=== PATIENT | female | born 1980 | race Caucasian/White ===

== ENCOUNTER 2016-10-02 09:56 | Emergency (ER) | payer OTHER ==
[~2016-10-02] VITALS: Ht 165.1 cm; Wt 97.6 kg
[2016-10-02 11:30] LABS: BLOOD UREA NITROGEN 4 mg/dL (7-18)
[2016-10-02 11:33] LABS: ASPARTATE AMINO TRANSFERASE 22 U/L (15-37)
[2016-10-02 12:04] VITALS: BP 106/76
== END 2016-10-02 12:08 | disposition home or self-care (01) ==
LOC: ED 10:48
DX: F10.20 Alcohol dependence, uncomplicated (principal); F41.9 Anxiety disorder, unspecified
CPT/HCPCS: 36415; 80053; 85025; 93005; 99285

== ENCOUNTER 2016-11-22 19:22 | Observation (INO) | payer MEDICAID, OTHER ==
[~2016-11-22] VITALS: Ht 165.1 cm; Wt 73.0 kg
[2016-11-22 19:55] LABS: BLOOD UREA NITROGEN 8 mg/dL (7-18)
[2016-11-22 19:57] LABS: ACETAMINOPHEN < 2 mcg/mL (10-30)
[2016-11-22 20:10] LABS: DAU SCREEN DISCLAIMER
[2016-11-23] MEDS ORDERED: DOCUSATE 100 MG CAPSULE PO PRN (05:00)
[2016-11-23] MEDS ORDERED: ONDANSETRON ODT 4 MG PO PRN (05:00)
[2016-11-23] MEDS ORDERED: POTASSIUM CHLORIDE 20 MEQ TAB.ER.PRT PO ONE (05:00)
[2016-11-23] MEDS ORDERED: ACETAMINOPHEN 325 MG TABLET PO PRN (05:00)
[2016-11-23 05:37] VITALS: BP 123/84
[2016-11-23 07:26] VITALS: BP 129/94
[2016-11-23] MEDS: RISPERIDONE 1 MG TABLET PO SCH ×2 (09:00→21:00)
[2016-11-23] MEDS ORDERED: ZIPRASIDONE 20MG CAPSULE PO PRN (18:00)
[2016-11-23 18:06] VITALS: BP 122/85
[2016-11-23] MEDS: NICOTINE 14MG/24 HR PATCH.TD24 TD SCH (18:28)
[2016-11-23 19:32] VITALS: BP 126/85
[2016-11-24] MEDS: ZIPRASIDONE 20MG CAPSULE PO PRN ×2 (01:45→12:22)
[2016-11-24 06:07] LABS: ASPARTATE AMINO TRANSFERASE 179 U/L (15-37); BLOOD UREA NITROGEN 7 mg/dL (7-18)
[2016-11-24 07:42] VITALS: BP 134/96
[2016-11-24] MEDS: RISPERIDONE 1 MG TABLET PO SCH ×2 (08:56→21:00)
[2016-11-24] MEDS: NICOTINE 14MG/24 HR PATCH.TD24 TD SCH (18:00)
[2016-11-24 19:36] VITALS: BP 125/75
[2016-11-25 08:23] VITALS: BP 120/90
[2016-11-25] MEDS: LORazepam 1MG TABLET PO PRN ×2 (08:23→17:23)
[2016-11-25] MEDS: BACLOFEN 10 MG TABLET PO SCH ×3 (08:33→21:00)
[2016-11-25] MEDS: RISPERIDONE 1 MG TABLET PO SCH ×2 (08:37→21:00)
[2016-11-25 17:24] VITALS: BP 122/90
[2016-11-25] MEDS: NICOTINE 14MG/24 HR PATCH.TD24 TD SCH (18:18)
[2016-11-25 20:11] VITALS: BP 131/85
[2016-11-26] MEDS: LORazepam 1MG TABLET PO PRN ×2 (08:14→17:33)
[2016-11-26] MEDS: BACLOFEN 10 MG TABLET PO SCH ×3 (08:14→20:45)
[2016-11-26] MEDS: RISPERIDONE 1 MG TABLET PO SCH ×6 (08:21→21:00)
[2016-11-26 08:25] VITALS: BP 133/94
[2016-11-26] MEDS: NICOTINE 14MG/24 HR PATCH.TD24 TD SCH (17:33)
[2016-11-26 19:41] VITALS: BP 133/88
[2016-11-27 07:51] VITALS: BP 139/92
[2016-11-27] MEDS: LORazepam 1MG TABLET PO PRN (08:06)
[2016-11-27] MEDS: BACLOFEN 10 MG TABLET PO SCH (08:06)
[2016-11-27] MEDS: RISPERIDONE 1 MG TABLET PO SCH (08:59)
== END 2016-11-27 14:45 ==
LOC: ED 20:05 → INTOOBSV 11-23 03:34 → EDIP 11-23 03:34 → 3E 11-23 05:35
PROVIDERS: ADMIT Internal Medicine; ATTEND Internal Medicine
DX: R45.851 Suicidal ideations (principal); F20.9 Schizophrenia, unspecified; F31.9 Bipolar disorder, unspecified; F41.9 Anxiety disorder, unspecified; E87.6 Hypokalemia; F22 Delusional disorders; F14.10 Cocaine abuse, uncomplicated; F10.239 Alcohol dependence with withdrawal, unspecified; Z91.14 Patient's other noncompliance with medication regimen
CPT/HCPCS: 36415; 80048; 80053; 80307; 80329; 82040; 84443; 84703; 85025; 99285; G0378; Q0177; G0480

== ENCOUNTER 2016-12-09 23:44 | Emergency (ER) | payer MEDICAID ==
[~2016-12-09] VITALS: Ht 165.1 cm; Wt 70.0 kg
[2016-12-10] MEDS ORDERED: LIDOCAINE 1%, 20ML ONE ×2 (00:18→12:38)
[2016-12-10] MEDS ORDERED: DIPH,PERTUSS(ACELL),TET VAC/PF 0.5 ML IM-VACC ONE ×2 (00:18→00:30)
[2016-12-10 00:20] LABS: DAU SCREEN DISCLAIMER
[2016-12-10] MEDS ORDERED: LIDOCAINE 1%, 20ML SQ ONE (00:30)
[2016-12-10 00:39] LABS: BLOOD UREA NITROGEN 3 mg/dL (7-18)
[2016-12-10 00:44] LABS: ASPARTATE AMINO TRANSFERASE 59 U/L (15-37)
[2016-12-10 00:45] LABS: ACETAMINOPHEN < 2 mcg/mL (10-30)
[2016-12-10] MEDS ORDERED: ZIPRASIDONE 20 MG INJ IM ONE ×2 (00:49→01:00)
[2016-12-10] MEDS ORDERED: BACITRACIN ZINC OINT 500U/GM, 0.9 GM ONE (01:31)
[2016-12-10] MEDS ORDERED: SODIUM CHLORIDE 0.9% 1,000ML IVBOLUS ONE (02:30)
[2016-12-10] MEDS ORDERED: SODIUM CHLORIDE FLUSH 10ML SYR IVF ONE (02:30)
[2016-12-10] MEDS ORDERED: POTASSIUM CHLORIDE 40 MEQ in SODIUM CHLORIDE 0.9% 500 ML IV ONE (02:30)
[2016-12-10] MEDS ORDERED: LORazepam 2 MG/ML, 1ML ONE (07:24)
[2016-12-10] MEDS ORDERED: POTASSIUM CHLORIDE 20 MEQ TAB.ER.PRT ONE (07:24)
[2016-12-10] MEDS ORDERED: LORazepam 2 MG/ML, 1ML IVPush ONE (07:30)
[2016-12-10] MEDS ORDERED: POTASSIUM CHLORIDE 20 MEQ TAB.ER.PRT PO ONE (07:30)
[2016-12-10 07:44] VITALS: BP 125/87
[2016-12-10] MEDS ORDERED: DOCUSATE 100 MG CAPSULE PO PRN (11:00)
[2016-12-10] MEDS ORDERED: ONDANSETRON ODT 4 MG PO PRN (11:00)
[2016-12-10] MEDS ORDERED: POLYETHYLENE GLYCOL 17 GM PACKET PO PRN (11:00)
[2016-12-10] MEDS ORDERED: LORazepam 2 MG/ML, 1ML IM PRN (11:00)
[2016-12-10] MEDS ORDERED: LORazepam 1MG TABLET PO PRN (11:00)
[2016-12-10] MEDS ORDERED: BISACODYL 10 MG SUPP PR PRN (11:00)
[2016-12-11] MEDS ORDERED: RISP2TAB3 PO (17:31)
== END 2016-12-10 14:45 | disposition left against medical advice (07) ==
LOC: ED 23:49 → EDIP 12-10 07:28 → UNDOADMOB 12-10 07:28 → ED 12-10 14:45
DX: F31.5 Bipolar disorder, current episode depressed, severe, with psychotic features (principal); E87.1 Hypo-osmolality and hyponatremia; F41.9 Anxiety disorder, unspecified; Z90.710 Acquired absence of both cervix and uterus
CPT/HCPCS: 12001; 36415; 80053; 80307; 80329; 84439; 84443; 84703; 85025; 90471; 90715; 96365; 96366; 96372; 96375; 99285; J2060; J3480; J3486; J3490; J7030; J7040; G0480